=== PATIENT | male | born 1980 | race African-American/Black ===

== ENCOUNTER 2017-04-10 09:48 | Emergency (ER) | payer SELFPAY ==
[~2017-04-10] VITALS: Ht 177.8 cm; Wt 68.0 kg
[2017-04-10] MEDS ORDERED: Ketorolac 30mg Inj IV ONE (10:00)
[2017-04-10] MEDS ORDERED: Morphine Sulfate 4mg/ml Inj IVP ONE (10:00)
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
[2017-04-10] MEDS ORDERED: NORCO 5-325 TA1 EACH ORAL (11:08)
[2017-04-10] MEDS ORDERED: IBUPROFEN600 MG ORAL (11:08)
[2017-04-10 11:18] VITALS: BP 122/69
--- NOTE | 2017-04-10 11:44 | Diagnostic Imaging Report ---
Indication: PAIN Technique: 2 views of the right shoulder Comparison: none Findings: There is an anterior right shoulder dislocation. No definite associated fracture. Impression:Positive for right shoulder dislocation. This was apparently recognized by the emergency room physician, as there is a subsequent postreduction radiograph available
--- NOTE | 2017-04-10 12:34 | Diagnostic Imaging Report ---
Indication: PAIN Technique: 2 views of the right shoulder Comparison: 12 minutes earlier Findings: Interim reduction of previously demonstrated right shoulder dislocation. No underlying fracture demonstrated Impression:Successful reduction of previously demonstrated right shoulder dislocation
== END 2017-04-10 11:23 | disposition home or self-care (01) ==
LOC: EMR 10:23
DX: S43.084A Other dislocation of right shoulder joint, initial encounter (principal); X50.9XXA Other and unspecified overexertion or strenuous movements or postures, initial encounter; Y92.89 Other specified places as the place of occurrence of the external cause
CPT/HCPCS: 73020; 96374; 96375; 99284; J1885; J2270

== ENCOUNTER 2019-12-29 17:47 | Emergency (ER) | payer SELFPAY ==
[~2019-12-29] VITALS: Ht 182.9 cm; Wt 74.8 kg
[~2019-12-29 17:47] MED LIST: IBUPROFEN600 MG ORAL; NORCO 5-325 TA1 EACH ORAL
[2019-12-29 17:55] VITALS: BP 157/90
--- NOTE | 2019-12-29 17:55 | NUR ---
ED Nurse Note: PT brought in by ambulance for possible overdose. pt stated he found something on the floor that look like cigarette and smoked it. since then he states "i dont feel good". PT significant other at bedside. VSS at this time.
--- NOTE | 2019-12-29 18:06 | Emergency Room Report ---
History of Present Illness General Chief Complaint: Overdose Source: Patient Present Illness HPI 39-year-old male no past medical history no surgical history has a history of polysubstance abuse presents with feeling high after smoking a joint that he found on the street, his high is affected by drugs alleviated by not taking drug severity is moderate, constant he smokes the joint prior to arrival. He denies any chest pain shortness of breath no nausea no vomiting no abdominal pain. Patient states he feels off Allergies: Coded Allergies: No Known Allergies (Unverified , 04/10/17) Patient History Past Medical History: see triage record Social History: Reports: smoking, alcohol use, drug use - Cocaine Reviewed Nursing Documentation: PMH: Agreed; PSxH: Agreed Nursing Documentation-PMH Past Medical History: No Stated History Review of Systems All Other Systems: negative except mentioned in HPI Physical Exam Vital Signs Date Time Temp Pulse Resp B/P (MAP) Pulse Ox O2 Delivery O2 Flow Rate FiO2 12/29/19 17:50 98.1 92 16 161/110 (127) 98 Room Air Sp02 EP Interpretation: reviewed, normal General Appearance: well appearing, no apparent distress, alert Head: normocephalic, atraumatic Eyes: bilateral eye PERRL, bilateral eye EOMI ENT: uvula midline, moist mucus membranes Neck: supple, thyroid normal, supple/symm/no masses Respiratory: lungs clear, no respiratory distress, no retraction, no accessory muscle use Cardiovascular #1: normal peripheral pulses, regular rate, rhythm, no edema, no gallop, no murmur Gastrointestinal: non tender, soft, no guarding, no rebound Musculoskeletal: normal inspection Neurologic: alert, oriented x3 Psychiatric: mood/affect normal Skin: no rash, warm/dry Medical Decision Making Diagnostic Impression: Primary Impression: Drug overdose Qualified Codes: T50.901A - Poisoning by unspecified drugs, medicaments and biological substances, accidental (unintentional), initial encounter ER Course 39-year-old male presents with most likely a drug reaction illicit drug reaction , patient counseled about test dosing, patient felt better after fluid rehydration patient was seen eating fried chicken room Strict return precautions were discussed follow-up with PCP Last Vital Signs Date Time Temp Pulse Resp B/P (MAP) Pulse Ox O2 Delivery O2 Flow Rate FiO2 12/29/19 17:50 98.1 92 16 161/110 (127) 98 Room Air Disposition: HOME, SELF-CARE Condition: Stable Referrals: [facility] Laurence Arcos. [facility] Patient Instructions: Drug Overdose Additional Instructions: The patient was provided with discharge instructions, notified to follow-up with a primary care doctor and or specialist in the next 24-48 hours, and to return to the ED if they have worsening of their symptoms. Please note that this report is being documented using [employer] technology. This can lead to erroneous entry secondary to incorrect interpretation by the dictating instrument. Yasir Johnson MD Dec 29, 2019 18:06
[2019-12-29 18:24] VITALS: BP 149/82
--- NOTE | 2019-12-29 18:25 | NUR ---
ED Nurse Note: pt unable to provide urine at this time. PT is aware to provide urine.
--- NOTE | 2019-12-29 19:15 | NUR ---
ED Nurse Note: Report given to ANGELICA Bardales Endorsed plan of care.
[2019-12-29 19:45] VITALS: BP 144/76
[2019-12-29 19:50] VITALS: BP 149/82
--- NOTE | 2019-12-29 19:50 | NUR ---
ER DISCHARGE NOTE: Patient is cleared to be discharged per ERMD, pt is aox4, on room air, with stable vital signs. pt was given dc and prescription instructions, pt was able to verbalize understanding, pt id band and iv site removed without complications. pt is able to ambulate with steady gait. pt took all belongings.
== END 2019-12-29 19:52 | disposition home or self-care (01) ==
LOC: EDBD 17:47 → EMR 17:58
DX: T50.901A Poisoning by unspecified drugs, medicaments and biological substances, accidental (unintentional), initial encounter (principal); X58.XXXA Exposure to other specified factors, initial encounter; Y92.9 Unspecified place or not applicable
CPT/HCPCS: 96360; 99284; J7030